=== PATIENT | female | born 1985 | race Caucasian/White ===

== ENCOUNTER 2017-08-07 13:02 | Inpatient (IN) | payer OTHER ==
[2017-08-07] MEDS ORDERED: SODIUM CHLORIDE 0.9% 1000 ML INFUS.BAG IV ONE (14:08)
[2017-08-07] MEDS ORDERED: ONDANSETRON 4 MG/2 ML VIAL IVPUSH ONE (14:08)
[2017-08-07] MEDS ORDERED: morphine CARPU-JECT 4 MG/1 ML DISP.SYRIN IVPUSH ONE (14:08)
[2017-08-07 14:14] LABS: URINE APPEARANCE CLOUDY; URINE BILIRUBIN NEGATIVE (NEGATIVE); URINE BLOOD 3+ (NEGATIVE); URINE COLOR DKYELLOW; URINE GLUCOSE (UA) NEGATIVE (NEGATIVE); URINE KETONE NEGATIVE (NEGATIVE); URINE LEUK ESTERASE NEGATIVE (NEGATIVE); URINE NITRITE NEGATIVE (NEGATIVE); URINE UROBILINOGEN NEGATIVE mg/dL (0.2-1.0)
[2017-08-07] MEDS ORDERED: ONDANSETRON 4 MG/2 ML VIAL ONE (14:19)
[2017-08-07] MEDS ORDERED: KETOROLAC TROMETHAMINE 30 MG/1 ML VIAL ONE (14:19)
[2017-08-07 14:23] LABS: BASO % 0.3 % (0-2.0); EOS % 0.1 % (0-4.5); MCH 26.6 pg (25.7-33.7); MCHC 32.3 g/dl (32.0-36.0); MEAN CELL VOLUME 82.3 fl (80-96); MEAN PLT VOLUME 9.1 fl (7.5-11.1); NEUT % 87.5 % (42.8-82.8); PLATELET COUNT 248 K/MM3 (134-434); RDW 14.4 % (11.6-15.6); WHITE BLOOD COUNT 15.2 K/mm3 (4.0-10.0)
[2017-08-07 14:27] LABS: URINE PROTEIN 1+ (NEGATIVE)
[2017-08-07] MEDS ORDERED: KETOROLAC TROMETHAMINE 30 MG/1 ML VIAL IVPUSH ONE (14:33)
--- NOTE | 2017-08-07 14:39 | PDOC ---
History of Present Illness - General History Source: Patient Exam Limitations: No Limitations - History of Present Illness Initial Comments: 08/07/17 14:40 The patient is a 31-year-old female, with no significant past medical history, who presents to the ED with right lower quadrant pain, nausea, and vomiting that began yesterday. Pt states that she woke up with the pain and vomited x2. She describes the pain as intermittent, sharp in sensation, with radiation to the groin. Pt developed hematuria while in the ED but denies any dysuria, frequency, urgency, or hesitancy. She reports taking Tylenol prior to arrival to the ED with mild relief of her symptoms. LMP was at the beginning of June. The patient denies any fever, chills, or diarrhea. She denies hx of kidney stones. <Citlalli Toledo - Last Filed: 08/07/17 14:40> - General History Source: Patient Exam Limitations: No Limitations <Nadege Jason - Last Filed: 08/07/17 16:23> - General Chief Complaint: Pain, Acute Stated Complaint: EMPLOYEE, RT SIDE PAIN Time Seen by Provider: 08/07/17 13:15 Past History <Citlalli Toledo - Last Filed: 08/07/17 14:40> - Past Medical History COPD: No Thyroid Disease: No - Suicide/Smoking/Psychosocial Hx Smoking History: Current every day smoker Have you smoked in the past 12 months: No Number of Cigarettes Smoked Daily: 1 Information on smoking cessation initiated: No Hx Alcohol Use: No Drug/Substance Use Hx: No Substance Use Type: None <Nadege Jason - Last Filed: 08/07/17 16:23> - Past Medical History Allergies/Adverse Reactions: Allergies Allergy/AdvReac Type Severity Reaction Status Date / Time No Known Allergies Allergy Verified 08/07/17 13:09 Home Medications: Ambulatory Orders NK [No Known Home Medication] 08/07/17 Review of Systems - Review of Systems Able to Perform ROS?: Yes Comments:: 08/07/17 14:40 GENERAL/CONSTITUTIONAL: No fever or chills. No weakness. HEAD, EYES, EARS, NOSE AND THROAT: No change in vision. No ear pain or discharge. No sore throat. CARDIOVASCULAR: No chest pain or shortness of breath. RESPIRATORY: No cough, wheezing, or hemoptysis. GASTROINTESTINAL: (+)right lower quadrant tenderness, nausea, vomiting. No diarrhea or constipation. GENITOURINARY: (+)Hematuria. No dysuria, frequency. MUSCULOSKELETAL: No joint or muscle swelling or pain. No neck or back pain. SKIN: No rash NEUROLOGIC: No headache, vertigo, loss of consciousness, or change in strength/ sensation. ENDOCRINE: No increased thirst. No abnormal weight change. HEMATOLOGIC/LYMPHATIC: No anemia, easy bleeding, or history of blood clots. ALLERGIC/IMMUNOLOGIC: No hives or skin allergy. <Citlalli Toledo - Last Filed: 08/07/17 14:40> *Physical Exam - Vital Signs Last Vital Signs Temp Pulse Resp BP Pulse Ox 98.8 F 70 18 144/87 100 08/07/17 13:05 08/07/17 13:05 08/07/17 13:05 08/07/17 13:05 08/07/17 13:05 - Physical Exam Comments: 08/07/17 14:41 GENERAL: Awake, alert, and fully oriented, in no acute distress HEAD: No signs of trauma EYES: PERRLA, EOMI, sclera anicteric, conjunctiva clear ENT: Auricles normal inspection, nares patent, oropharynx clear without exudates. Moist mucosa. NECK: Normal ROM, supple, no lymphadenopathy, JVD, or masses LUNGS: Breath sounds equal, clear to auscultation bilaterally. No wheezes, and no crackles HEART: Regular rate and rhythm, normal S1 and S2, no murmurs, rubs or gallops ABDOMEN: (+)Mid right lower quadrant tenderness, right CVA tenderness. Soft, normoactive bowel sounds. No guarding, no rebound. No masses EXTREMITIES: Normal range of motion, no edema. No clubbing or cyanosis. No cords, erythema, or tenderness NEUROLOGICAL: Alert and oriented x 3. SKIN: Warm, Dry, normal turgor, no rashes or lesions noted <Citlalli Toledo - Last Filed: 08/07/17 14:40> - Vital Signs Last Vital Signs Temp Pulse Resp BP Pulse Ox 98.8 F 70 18 144/87 100 08/07/17 13:05 08/07/17 13:05 08/07/17 13:05 08/07/17 13:05 08/07/17 13:05 <Nadege Jason - Last Filed: 1214/17 16:23> ED Treatment Course - LABORATORY CBC & Chemistry Diagram: 08/07/17 14:17 08/07/17 14:17 - ADDITIONAL ORDERS Additional order review: Laboratory Results 08/07/17 14:03 Urine Color Dkyellow Urine Appearance Cloudy Urine pH 7.0 Ur Specific [place] 1.021 Urine Protein 1+ H Urine Glucose (UA) Negative Urine Ketones Negative Urine Blood 3+ H Urine Nitrite Negative Urine Bilirubin Negative Urine Urobilinogen Negative Urine HCG, Qual Negative 08/07/17 14:17 RBC 4.54 MCV 82.3 MCHC 32.3 RDW 14.4 MPV 9.1 Neutrophils % 87.5 H Lymphocytes % 7.9 L Monocytes % 4.2 Eosinophils % 0.1 Basophils % 0.3 - Medications Given in the ED: ED Medications Discontinued Medications Generic Name Dose Route Start Last Admin Trade Name Freq PRN Reason Stop Dose Admin Ondansetron HCl 4 mg 08/07/17 14:08 08/07/17 14:32 Zofran Injection IVPUSH 08/07/17 14:09 4 mg ONCE ONE Administration Sodium Chloride 1,000 ml 08/07/17 14:08 08/07/17 14:32 Normal Saline - IV 08/07/17 14:09 1,000 ml ONCE ONE Administration <Citlalli Toledo - Last Filed: 08/07/17 14:40> - LABORATORY CBC & Chemistry Diagram: 08/07/17 14:17 08/07/17 14:17 - ADDITIONAL ORDERS Additional order review: Laboratory Results 08/07/17 14:03 Urine Color Dkyellow Urine Appearance Cloudy Urine pH 7.0 Ur Specific [place] 1.021 Urine Protein 1+ H Urine Glucose (UA) Negative Urine Ketones Negative Urine Blood 3+ H Urine Nitrite Negative Urine Bilirubin Negative Urine Urobilinogen Negative Urine HCG, Qual Negative 08/07/17 14:17 RBC 4.54 MCV 82.3 MCHC 32.3 RDW 14.4 MPV 9.1 Neutrophils % 87.5 H Lymphocytes % 7.9 L Monocytes % 4.2 Eosinophils % 0.1 Basophils % 0.3 - RADIOLOGY Radiology Studies Ordered: Category Date Time Status SPIRAL- RENAL-STONE CT [CT] Stat CT Scan 08/07/17 14:06 Ordered - Medications Given in the ED: ED Medications Discontinued Medications Generic Name Dose Route Start Last Admin Trade Name Jonathan PRN Reason Stop Dose Admin Ondansetron HCl 4 mg 08/07/17 14:08 08/07/17 14:32 Zofran Injection IVPUSH 08/07/17 14:09 4 mg ONCE ONE Administration Sodium Chloride 1,000 ml 08/07/17 14:08 08/07/17 14:32 Normal Saline - IV 08/07/17 14:09 1,000 ml ONCE ONE Administration <Nadege Jason - Last Filed: 08/07/17 16:23> Medical Decision Making - Medical Decision Making 08/07/17 14:37 31-year-old female no past medical history here coming in complaining of right- sided sharp abdominal pain started yesterday became acutely worse today pain is intermittent sharp radiates towards the groin she did have associated nausea and vomiting times one with the pain no fever or chills. No urinary complaints no dysuria no hematuria no history of prior kidney stones On exam she is awake alert no acute distress cardiac and lung exam is unremarkable. Abdomen is noted for right mid quadrant and right CVA tenderness Differential includes pyelonephritis, renal colic, ovarian cyst or related pain appendicitis. Plan urine urinalysis UCG cbc lites CT abdomen and pelvis to evaluate for stone pain control antiemetics and IV hydration <Nadege Jason - Last Filed: 08/07/17 16:23> *DC/Admit/Observation/Transfer - Attestations Scribe Attestion: 08/07/17 14:43 Documentation prepared by Citlalli Toledo, acting as medical device engineer for Nadege Jason MD. <Citlalli Toledo - Last Filed: 08/07/17 14:40> - Discharge Dispostion Admit: Yes <Nadege Jason - Last Filed: 08/07/17 16:23> Diagnosis at time of Disposition: Renal colic on right side - Referrals Referrals: Frederick Johnson MD [Primary Care Provider] - - Patient Instructions - Post Discharge Activity
[2017-08-07 14:49] LABS: ANION GAP 7 (8-16); BILIRUBIN,TOTAL 0.2 mg/dL (0.2-1.0); CALCIUM 8.8 mg/dL (8.5-10.1); CO2 27 mmol/L (21-32); CREATININE 0.8 mg/dL (0.55-1.02); GLUCOSE,RANDOM 107 mg/dL (74-106); SGOT/AST 13 U/L (15-37); SGPT/ALT 23 U/L (12-78); TOT PROT 8.3 g/dl (6.4-8.2)
[2017-08-07 14:50] LABS: ALK PHOS 109 U/L (45-117)
[2017-08-07 15:16] LABS: URINE MUCUS FEW; URINE RBC 4359 /hpf (0-3); URINE WBC 1 /hpf (3-5)
[2017-08-07 19:53] LABS: URINE LEUK ESTERASE Negative (NEGATIVE)
[2017-08-08] MEDS ORDERED: DEXTROSE 5%-0.45% SALINE 1,000 ML IV SCH (00:30)
[2017-08-08] MEDS ORDERED: ONDANSETRON 4 MG/2 ML VIAL IVPUSH PRN ×3 (00:31→18:40)
[2017-08-08] MEDS ORDERED: morphine CARPU-JECT 4 MG/1 ML DISP.SYRIN IVPUSH PRN (00:32)
[2017-08-08] MEDS ORDERED: morphine SULFATE 4 MG/ML VIAL IVPUSH PRN ×2 (00:52→18:40)
--- NOTE | 2017-08-08 01:06 | HP ---
CHIEF COMPLAINT: Right Flank, Abdominal Cramping PCP: Dr. Frederick Johnson HISTORY OF PRESENT ILLNESS: This is a 31 y/o young woman with no past medical history. Who presents to the ED with right sharp flank pain and abdominal cramping since 9am yesterday while at work. Patient reports having episodes of non-bilious vomiting. Patient reports being constipated x several days. Patient denies fever, chills, cough, dizziness, FOFANA, SOB, CP, diarrhea, dysuria ER course was notable for: (1) CTAP- 4.3mm calculus right UPJ with mild-moderate hydronephrosis. Several 1mm nonobstructing left renal calculi are seen (2) WBC 15.2, Neutrophils 87.5 (3) UA- +3 blood, +1 protein, 4359 RBC Recent Travel: None PAST MEDICAL HISTORY: None PAST SURGICAL HISTORY: Appendectomy Social History: Smoking: Never Alcohol: None Drugs: None Lives with family, employed- [employer] Family History: Parents: Diabetes, Hypertension Allergies No Known Allergies Allergy (Verified 08/07/17 13:09) HOME MEDICATIONS: Home Medications Medication Instructions Recorded NK [No Known Home Medication] 08/07/17 REVIEW OF SYSTEMS CONSTITUTIONAL: Absent: fever, chills, diaphoresis, generalized weakness, malaise, loss of appetite, weight change HEENT: Absent: rhinorrhea, nasal congestion, throat pain, throat swelling, difficulty swallowing, mouth swelling, ear pain, eye pain, visual changes CARDIOVASCULAR: Absent: chest pain, syncope, palpitations, irregular heart rate, lightheadedness , peripheral edema RESPIRATORY: Absent: cough, shortness of breath, dyspnea with exertion, orthopnea, wheezing, stridor, hemoptysis GASTROINTESTINAL:abdominal pain, nausea, vomiting, constipation Absent: abdominal distension, diarrhea, melena, hematochezia GENITOURINARY: hematuria, flank pain Absent: dysuria, frequency, urgency, hesitancy, genital pain MUSCULOSKELETAL: Absent: myalgia, arthralgia, joint swelling, back pain, neck pain SKIN: Absent: rash, itching, pallor HEMATOLOGIC/IMMUNOLOGIC: Absent: easy bleeding, easy bruising, lymphadenopathy, frequent infections ENDOCRINE: Absent: unexplained weight gain, unexplained weight loss, heat intolerance, cold intolerance NEUROLOGIC: Absent: headache, focal weakness or paresthesias, dizziness, unsteady gait, seizure, mental status changes, bladder or bowel incontinence PSYCHIATRIC: Absent: anxiety, depression, suicidal or homicidal ideation, hallucinations. PHYSICAL EXAMINATION Vital Signs - 24 hr 08/07/17 08/07/17 13:05 16:06 Temperature 98.8 F Pulse Rate 70 Pulse Rate [ 69 Apical] Respiratory 18 18 Rate Blood Pressure 144/87 Blood Pressure 141/74 [Right Arm] O2 Sat by Pulse 100 Oximetry (%) GENERAL: Awake, alert, and fully oriented, in no acute distress. HEAD: Normal with no signs of trauma. EYES: Pupils equal, round and reactive to light, extraocular movements intact, sclera anicteric, conjunctiva clear. No lid lag. EARS, NOSE, THROAT: Ears normal, nares patent, oropharynx clear without exudates. Moist mucous membranes. NECK: Normal range of motion, supple without lymphadenopathy, JVD, or masses. LUNGS: Breath sounds equal, clear to auscultation bilaterally. No wheezes, and no crackles. No accessory muscle use. HEART: Regular rate and rhythm, normal S1 and S2 without murmur, rub or gallop. ABDOMEN: Obese, soft, generalized tenderness, not distended, normoactive bowel sounds, no guarding, no rebound, no masses. No hepatomegaly or splenomegaly. MUSCULOSKELETAL: Normal range of motion at all joints. No bony deformities or tenderness. + right CVA tenderness, no L- CVA tenderness. UPPER EXTREMITIES: 2+ pulses, warm, well-perfused. No cyanosis. No clubbing. No peripheral edema. LOWER EXTREMITIES: 2+ pulses, warm, well-perfused. No calf tenderness. No peripheral edema. NEUROLOGICAL: Cranial nerves II-XII intact. Normal speech. Gait not observed. PSYCHIATRIC: Cooperative. Good eye contact. Appropriate mood and affect. SKIN: Warm, dry, normal turgor, no rashes or lesions noted, normal capillary refill. Laboratory Results - last 24 hr 08/07/17 08/07/17 08/07/17 14:03 14: 14:17 WBC 15.2 H RBC 4.54 Hgb 12.1 Hct 37.3 MCV 82.3 MCH 26.6 MCHC 32.3 RDW 14.4 Plt Count 248 MPV 9.1 Neutrophils % 87.5 H Lymphocytes % 7.9 L Monocytes % 4.2 Eosinophils % 0.1 Basophils % 0.3 Sodium 139 Potassium 3.7 Chloride 105 Carbon Dioxide 27 Anion Gap 7 L BUN 13 Creatinine 0.8 Creat Clearance w eGFR > 60 Random Glucose 107 H Calcium 8.8 Total Bilirubin 0.2 AST 13 L ALT 23 Alkaline Phosphatase 109 Total Protein 8.3 H Albumin 4.0 Urine Color Dkyellow Urine Appearance Cloudy Urine pH 7.0 Ur Specific [place] 1.021 Urine Protein 1+ H Urine Glucose (UA) Negative Urine Ketones Negative Urine Blood 3+ H Urine Nitrite Negative Urine Bilirubin Negative Urine Urobilinogen Negative Ur Leukocyte Esterase Negative Urine WBC (Auto) 1 Urine RBC (Auto) 4359 Ur Epithelial Cells Rare Urine Mucus Few Urine HCG, Qual Negative ASSESSMENT/PLAN: This is a 31 y/o woman with no PMHx. Placed in Observation for Right Renal Calculi with Hydronephrosis. Assumed care of patient at 00:30, due to no endorsement or knowledge of admission from the ED. FEN - D51/2NS@100cc/hr - Replete lytes prn - NPO Code Status: Full Code Dispo: Observation Problem List - Problem (1) Renal colic on right side Assessment/Plan: - CTAP report- 4.3mm calculus right utereopelvic junction with mild to moderate hydronephrosis. Right renal perirenal soft tissue strandingmsecondary to acute obstruction. Several 1mm nonobstructing left renal calculi are seen. - UA- +3 blood, +1 protein, 4359 RBC - +leukocytosis w/shift, afebrile, - CBCD, BMP in am - Appreciate Urology Consult - Continue IVF - NPO - Flomax - Monitor vitals Code(s): N23 - UNSPECIFIED RENAL COLIC (2) DVT prophylaxis Assessment/Plan: - OOB - SCDs Code(s): [id number] - Visit type - Emergency Visit Emergency Visit: Yes ED Registration Date: 08/07/17 Care time: The patient presented to the Emergency Department on the above date and was hospitalized for further evaluation of their emergent condition. - New Patient This patient is new to me today: Yes Date on this admission: 08/08/17 - Critical Care Critical Care patient: No
[2017-08-08 01:52] VITALS: BMI 29.5
[2017-08-08 07:51] LABS: BASO % 0.4 % (0-2.0); EOS % 0.8 % (0-4.5); MCH 26.8 pg (25.7-33.7); MCHC 32.4 g/dl (32.0-36.0); MEAN CELL VOLUME 82.8 fl (80-96); MEAN PLT VOLUME 9.4 fl (7.5-11.1); NEUT % 66.3 % (42.8-82.8); PLATELET COUNT 219 K/MM3 (134-434); RDW 14.6 % (11.6-15.6); WHITE BLOOD COUNT 8.8 K/mm3 (4.0-10.0)
[2017-08-08 08:10] LABS: INR 1.16 (0.82-1.09); PROTHROMBIN TIME (PATIENT) 13.1 SEC (9.98-11.88)
[2017-08-08 08:19] LABS: ANION GAP 9 (8-16); CALCIUM 8.5 mg/dL (8.5-10.1); CO2 26 mmol/L (21-32); CREATININE 0.7 mg/dL (0.55-1.02); GLUCOSE,RANDOM 85 mg/dL (74-106)
[2017-08-08] MEDS ORDERED: TAMSULOSIN HCL 0.4 MG CAP.ER.24H (FP) PO SCH (08:30)
[2017-08-08] MEDS ORDERED: ACETAMINOPHEN 325 MG TABLET (FP) PO PRN ×2 (08:55→18:40)
--- NOTE | 2017-08-08 12:41 | HOSP ---
Subjective - Review of Symptoms Subjective: Patient seen and examined. She c/o head ache but denies r flank pain or supra pubic tenderness Physical Examination Vital Signs: Vital Signs Temperature 98.0 F 08/08/17 09:19 Pulse Rate 74 08/08/17 09:19 Respiratory Rate 18 08/08/17 09:19 Blood Pressure 139/73 08/08/17 09:19 O2 Sat by Pulse Oximetry (%) 98 08/08/17 09:00 Labs: CBC, BMP 08/08/17 07:15 08/08/17 07:15 Hospitalist Encounter Assessment: Assessment: 31 year old female admitted with right renal colic Plan: 1. Right Renal Calculi with Hydronephrosis - For cysto/uteroscopy/stent placement today ~1700 w/urology - Leukocytosis resolved - UA negative - NPO until after procedure - Start 1/2 Ns @83cc/hr 2. DVT - SCDS
[2017-08-08] MEDS ORDERED: SODIUM CHLORIDE 0.45% 1,000 ML IV SCH (12:45)
[2017-08-08] MEDS ORDERED: LIDOCAINE HCL/PF 2% SDV 5ML VIAL ONE (17:43)
[2017-08-08] MEDS ORDERED: fentaNYL CITRATE 250 MCG/5 ML VIAL ONE (17:43)
[2017-08-08] MEDS ORDERED: SUCCINYLCHOLINE CHLORIDE 200 MG/10 ML VIAL ONE (17:44)
[2017-08-08] MEDS ORDERED: PROPOFOL 20 ML ONE (17:44)
--- NOTE | 2017-08-08 17:47 | CON.GU ---
Consult Consult Specialty:: urology Referred by:: rocio Reason for Consultation:: right renal colic - History of Present Illness Chief Complaint: right renal colic History of Present Illness: patient with right ureteral stone in severe pain with nausea and vomiting. Patient in severe distress. Patient with proximal right ureteral stone in severe distress. Patient seen in AM. Discussed x 25 minutes all risks and befefits and agrees to right ureteroscopy and stent - History Source History Provided By: Patient Limitations to Obtaining History: No Limitations - Past Medical History ...LMP: 07/25/17 - Alcohol/Substance Use Hx Alcohol Use: No - Smoking History Smoking history: Current every day smoker Have you smoked in the past 12 months: No Aproximately how many cigarettes per day: 1 Home Medications - Allergies Allergies/Adverse Reactions: Allergies Allergy/AdvReac Type Severity Reaction Status Date / Time No Known Allergies Allergy Verified 08/07/17 13:09 - Home Medications Home Medications: Ambulatory Orders NK [No Known Home Medication] 08/07/17 Physical Exam- Vital Signs: Vital Signs Temperature 98.1 F 08/08/17 17:11 Pulse Rate 72 08/08/17 17:11 Respiratory Rate 19 08/08/17 17:11 Blood Pressure 151/85 08/08/17 17:11 O2 Sat by Pulse Oximetry (%) 98 08/08/17 09:00 Constitutional: Yes: Well Nourished, Anxious, Moderate Distress Eyes: Yes: WNL, Conjunctiva Clear, EOM Intact HENT: Yes: WNL, Atraumatic, Normocephalic Neck: Yes: WNL, Supple, Trachea Midline Cardiovascular: Yes: WNL, Regular Rate and Rhythm Respiratory: Yes: WNL, Regular Gastrointestinal: Yes: WNL, Soft, Hypoactive Bowel Sounds Renal/: Yes: CVA Tenderness - Right Kidneys: Yes: WNL, FLank Pain Right Pelvis: Yes: WNL External Genitalia: Yes: WNL Labs: CBC, BMP 08/08/17 07:15 08/08/17 07:15 Imaging - Results Cat Scan: Report Reviewed (right ureteral stone with hydronephrosis), Image Reviewed Assessment/Plan impression right ureteral stone with hydro right renal colic plan patient is scheduled for right ureterscopy as an emergency due to patient's severe distress
[2017-08-08] MEDS ORDERED: LEVOFLOXACIN 500 MG PREMIX BAG IVPB ONE ×2 (17:50→17:55)
[2017-08-08] MEDS ORDERED: MIDAZOLAM HCL 2 MG/2 ML SINGLE DOSE VIAL ONE (17:54)
--- NOTE | 2017-08-08 18:18 | OP ---
Operative Note - Note: Operative Date: 08/08/17 Pre-Operative Diagnosis: right ureteral stone with hydronephrosis Operation: cystoscopy/right retrograde pyelogram/right ureterscopic stone manipulation/right ureteral stent placement Findings: 5-6mm proximal right impacted stone with high grade hydronephrosis Post-Operative Diagnosis: Same as Pre-op Surgeon: Yunior Forbes Anesthesia: General
[2017-08-08] MEDS ORDERED: PROMETHAZINE HCL 25 MG/1 ML VIAL IVPUSH PRN (18:27)
[2017-08-08] MEDS ORDERED: LACTATED RINGERS SOLUTION 1,000 ML IV SCH (18:30)
[2017-08-08] MEDS: SODIUM CHLORIDE 0.45% 1,000 ML IV SCH (20:35)
[2017-08-09] MEDS: SODIUM CHLORIDE 0.45% 1,000 ML IV SCH (06:04)
[2017-08-09] MEDS: oxyCODONE HCL 5 MG TABLET PO PRN ×2 (06:07→13:23)
[2017-08-09 10:35] VITALS: BP 131/62; PULSE 72; TEMP 100.1
[2017-08-09 11:35] LABS: BASO % 0.3 % (0-2.0); EOS % 0.1 % (0-4.5); MCH 26.3 pg (25.7-33.7); MCHC 32.1 g/dl (32.0-36.0); MEAN PLT VOLUME 9.3 fl (7.5-11.1); NEUT % 74.7 % (42.8-82.8); PLATELET COUNT 230 K/MM3 (134-434); RDW 14.3 % (11.6-15.6); WHITE BLOOD COUNT 15.3 K/mm3 (4.0-10.0)
[2017-08-09 12:39] LABS: ALBUMIN 3.3 g/dl (3.4-5.0); ALK PHOS 93 U/L (45-117); ANION GAP 7 (8-16); BILIRUBIN,TOTAL 0.2 mg/dL (0.2-1.0); CALCIUM 8.5 mg/dL (8.5-10.1); CO2 26 mmol/L (21-32); CREATININE 0.8 mg/dL (0.55-1.02); GLUCOSE,RANDOM 83 mg/dL (74-106); SGOT/AST 14 U/L (15-37); SGPT/ALT 20 U/L (12-78); TOT PROT 7.2 g/dl (6.4-8.2)
--- NOTE | 2017-08-09 13:10 | DS ---
Physical Exam: SUBJECTIVE: Patient seen and examined at the bedside. Reports her nausea and vomiting has resolved. OBJECTIVE: s/p cysto/uteroscopy/stent placement on 08/08/2017 For discharge today and pt will return on Friday08/11/2017 Pt has low grade temps and wbc of 15.3, starting on Levaquin 500mg daily x 7 days Vital Signs Period Temp Pulse Resp BP Sys/Sanchez Pulse Ox Last 24 Hr 98 F-100.1 F 72-116 16-20 125-151/62-90 97-99 PHYSICAL EXAM GENERAL: The patient is awake, alert, and fully oriented, in no acute distress. HEAD: Normal with no signs of trauma. EYES: PERRL, extraocular movements intact, sclera anicteric, conjunctiva clear. ENT: Ears normal, nares patent, oropharynx clear without exudates, moist mucous membranes. NECK: Trachea midline, full range of motion, supple. LUNGS: Breath sounds equal, clear to auscultation bilaterally, no wheezes, no crackles, no accessory muscle use. HEART: Regular rate and rhythm, S1, S2 without murmur, rub or gallop. ABDOMEN: Soft, nontender, nondistended, normoactive bowel sounds, no guarding, no rebound, no hepatosplenomegaly, no masses. EXTREMITIES: 2+ pulses, warm, well-perfused, no edema. NEUROLOGICAL: Normal speech, gait not observed. PSYCH: Normal mood, normal affect. SKIN: Warm, dry, normal turgor, no rashes or lesions noted. LABS Laboratory Results - last 24 hr 08/09/17 08/09/17 11:05 11:05 WBC 15.3 H D RBC 4.15 Hgb 10.9 Hct 34.1 MCV 82.0 MCH 26.3 MCHC 32.1 RDW 14.3 Plt Count 230 MPV 9.3 Neutrophils % 74.7 Lymphocytes % 16.7 D Monocytes % 8.2 Eosinophils % 0.1 D Basophils % 0.3 Sodium 139 Potassium 3.6 Chloride 106 Carbon Dioxide 26 Anion Gap 7 L BUN 11 D Creatinine 0.8 Creat Clearance w eGFR > 60 Random Glucose 83 Calcium 8.5 Total Bilirubin 0.2 AST 14 L ALT 20 Alkaline Phosphatase 93 Total Protein 7.2 Albumin 3.3 L HOSPITAL COURSE: Date of Admission:08/07/17 Date of Discharge: 08/09/17 Patient is a 31 year old female who was admitted on 08/07/2017 for right renal colic. She is s/p cysto/uteroscopy/stent placement on 08/08/2017. She will be discharged today and will return on 08/11/2017 to ambulatory surgery for lithotripsy with Dr. Shant Heath. Today, it was noted that pt haa low grade temp and a a bump in her wbc to 15.3. She has been started on Levaquin 500mg daily x 7 days, with the first dose prior to discharge. : Right Renal Calculi with Hydronephrosis s/p cysto/uteroscopy/stent placement on 08/08/2017 On Levaquin 500mg daily for WBC of 15.3 and temp of 100.1f Urine culture sent Encouraged hydration Tylenol PRN To return on Saturday 08/11 @ 9am. for lithotripsy with Dr. Shant Heath Disposition: Discharge home today. full code. Minutes to complete discharge: 60 Discharge Summary Reason For Visit: RENAL COLIC ON RIGHT SIDE Current Active Problems DVT prophylaxis (Acute) Renal colic on right side (Acute) Condition: Improved - Instructions Diet, Activity, Other Instructions: Ms Copeland: Please continue taking the Levaquin 500mg DAILY for 7 days total starting today ( to 08/15/2017). Please come to Ambulatory Surgery on FridayAugust 11 for scheduled lithotripsy with Dr. Shant Heath. NOTHING to eat or drink on midnight Saturday 08/11 for the scheduled procedure. Please call me with any questions that you may have Jeanie Baeza NP [facility] [phone] Referrals: Frederick Johnson MD [Primary Care Provider] - Yunior Forbes MD [Staff Physician] - Disposition: HOME - Home Medications Comprehensive Discharge Medication List: Ambulatory Orders NK [No Known Home Medication] 08/07/17 This patient is new to me today: Yes Date on this admission: 08/09/17 Emergency Visit: Yes ED Registration Date: 08/07/17 Care time: The patient presented to the Emergency Department on the above date and was hospitalized for further evaluation of their emergent condition. Critical Care patient: No - Discharge Referral Referred to [facility] No
[2017-08-09] MEDS ORDERED: LEVOFLOXACIN 500 MG TABLET (FP) PO SCH (13:15)
--- NOTE | 2017-08-10 20:25 | OP ---
DATE OF OPERATION: 08/08/2017 PREOPERATIVE DIAGNOSIS: Right ureteral stone with hydroureteronephrosis. POSTOPERATIVE DIAGNOSIS: Impacted right ureteral stone and upper ureter with high-grade hydronephrosis. ATTENDING: Dianna Jj MD ANESTHESIA: General. PROCEDURE: Cystoscopy, right retrograde pyelogram, right ureteroscopic stone manipulation, right ureteral stent placement. OPERATION: The patient was brought in the operating room, placed in supine position on the operating room table. The patient was seen the sales representative public utilities hours and found to be in severe distress with nausea and vomiting. The patient was therefore decided to be an emergency procedure and required drainage of the right kidney in order to improve her clinical situation. The patient was given all risks and benefits and brought to the operating room in order to correct the ureteral obstruction. The patient was placed in the dorsal lithotomy position and prepped and draped in the usual sterile manner. General anesthesia had been administered, as well as Levaquin 500 mg intravenously. At this point, the bladder was investigated and no evidence of stones or neoplasm was noted within the bladder. A retrograde pyelogram was performed, which showed a proximal filling defect roughly 2 cm below the right ureteropelvic junction. A high-grade hydronephrosis was noted. Attempts at passing a wire past the stone were unsuccessful. At this point, the wire was left at the level of the stone, and the ureteroscope taken to the level of the stone. With difficulty, under direct visualization, the wire was passed into the kidney. The stone was disimpacted with the aid of the ureteroscope; however, migrated into the lower pole samira. Pyuric urine was noted. Because of the high risk of increased morbidity, it was decided to leave the patient with a stent and to schedule an extracorporeal shock-wave lithotripsy at a later date. The ureteroscope was removed. A 6-Indian 24-cm stent was placed utilizing Seldinger technique, no complications were noted. The patient tolerated the procedure very well. DIANNA JJ M.D. /[id number]
== END 2017-08-09 15:00 | disposition home or self-care (01) | DRG 669 ==
LOC: JER 13:02 → JERBED 16:23 → J5S 18:23
PROVIDERS: ADMIT Family Medicine; ATTEND Nurse Practitioner Family
PROC: 0TC68ZZ Extirpation of Matter from Right Ureter, Via Natural or Artificial Opening Endoscopic (ICD-10-PCS; 2017-08-08)
PROC: BT1DZZZ Fluoroscopy of Right Kidney, Ureter and Bladder (ICD-10-PCS; 2017-08-08)
PROC: 0T768DZ Dilation of Right Ureter with Intraluminal Device, Via Natural or Artificial Opening Endoscopic (ICD-10-PCS; principal; 2017-08-08 17:30)
DX: N13.2 Hydronephrosis with renal and ureteral calculous obstruction (principal); D72.828 Other elevated white blood cell count; F17.200 Nicotine dependence, unspecified, uncomplicated
CPT/HCPCS: 36415; 74176; 76000-TC; 80048; 80053; 81003; 81015; 84703; 85025; 85610; 86850; 86900; 86901; 87040; 87086; 94760; 99283-25

== ENCOUNTER 2017-08-11 08:39 | Day surgery (SDC) | payer OTHER ==
[2017-08-11 08:57] VITALS: BMI 32.1
[2017-08-11] MEDS ORDERED: MIDAZOLAM HCL 2 MG/2 ML SINGLE DOSE VIAL ONE (12:59)
[2017-08-11] MEDS ORDERED: LEVOFLOXACIN 500 MG PREMIX BAG IVPB ONE (13:50)
[2017-08-11] MEDS ORDERED: oxyCODONE HCL 5 MG TABLET PO PRN (14:26)
[2017-08-11] MEDS ORDERED: ONDANSETRON 4 MG/2 ML VIAL IVPUSH PRN (14:26)
[2017-08-11] MEDS ORDERED: PROMETHAZINE HCL 25 MG/1 ML VIAL IVPUSH PRN (14:26)
--- NOTE | 2017-08-11 14:27 | OP ---
Operative Note - Note: Operative Date: 08/11/17 Pre-Operative Diagnosis: right renal stone Operation: right eswl Findings: 5 mm right mid pole renal stone which was lithotripsied and a 3 mm right lower pole renal stone Post-Operative Diagnosis: Same as Pre-op Surgeon: Yunior Forbes Anesthesia: MAC Operative Report Dictated: Yes
[2017-08-11] MEDS ORDERED: LACTATED RINGERS SOLUTION 1,000 ML IV SCH (14:30)
[2017-08-11 14:48] VITALS: TEMP 98.2
[2017-08-11 15:01] VITALS: BP 145/91; PULSE 69
--- NOTE | 2017-08-11 21:43 | OP ---
DATE OF OPERATION: 08/11/2017 PREOPERATIVE DIAGNOSIS: Right renal stone. POSTOPERATIVE DIAGNOSIS: Right renal stone. PROCEDURE: Right extracorporeal shock wave lithotripsy. ATTENDING: Dianna Jj MD ANESTHESIA: MAC. DESCRIPTION OF OPERATION: The patient was brought in the operating room and placed in supine position on the operating room table. The patient is status post a right ureteroscopy and stent placement for a proximal ureteral stone which was impacted. On ureteroscopy 3 days ago, the stone had migrated into the kidney, and the patient had pyuria. The patient was stented, and a right extracorporeal shock wave lithotripsy was scheduled. The patient underwent a sonogram and fluoroscopy in the operating room prior to anesthesia. Two stones were identified, a 5-mm right mid-pole and a 3-mm right lower pole stone. The stent was seen and found to be in good position. The patient was then given MAC anesthesia. Levaquin was administered. The focus of the extracorporeal shock wave lithotripsy was the 5-mm right mid-pole stone which was the one that was obstructing the kidney acutely. The patient received 2500 impulses at 18-20 joules of power. Excellent fragmentation was noted under real-time ultrasonography and fluoroscopy. No complications were noted. Patient tolerated the procedure very well. The disposition of the patient was to the recovery room. DIANNA JJ M.D. [id number]
== END 2017-08-11 15:55 | disposition home or self-care (01) ==
LOC: JASU-SURG 08:39
PROVIDERS: ATTEND Urology
PROC: 0TF3XZZ Fragmentation in Right Kidney Pelvis, External Approach (ICD-10-PCS; principal; 2017-08-11 13:30)
DX: N20.0 Calculus of kidney (principal)
CPT/HCPCS: 84703; 94760